=== PATIENT | female | born 1955 ===

== ENCOUNTER → 2016-12-01 | Outpatient (CLI) | payer OTHER | LOC: BMCIMAGING 12:51 | PROVIDERS: ATTEND Emergency Medicine | DX: S92.524A Nondisplaced fracture of middle phalanx of right lesser toe(s), initial encounter for closed fracture (principal) ==

== ENCOUNTER 2017-05-06 12:30 | Inpatient (IN) | payer OTHER ==
[2017-05-06] MEDS ORDERED: ACETAMINOPHEN 325 MG TAB PO PRN (14:24)
[2017-05-06] MEDS ORDERED: ONDANSETRON 4 MG/2 ML VIAL IVP PRN (14:24)
[2017-05-06] MEDS ORDERED: ONDANSETRON DISINTEGRATING 4 MG TAB PO PRN (14:24)
[2017-05-06] MEDS ORDERED: oxyCODONE IR 5 MG TAB PO PRN (14:24)
--- NOTE | 2017-05-06 15:19 | GHP ---
[f rep st] HISTORY AND PHYSICAL DATE OF ADMISSION: 05/06/2017 CHIEF COMPLAINT: Fever and rash. HISTORY OF PRESENT ILLNESS: This is a 62-year-old female with no past medical history who presents w ith 2 days of fevers. This started afternoon. She had to crawl into bed. She measured a f ever to almost 102 degrees Fahrenheit. Later that day, she noticed a rash on her left leg which was painful and erythematous. She thinks that this began because she had socks that were too tight and s lightly abraded her skin around her ankles. She presented to urgent care at [facility] because of this. She tells me over the last 2 months she has had 2 respiratory infections which have also caused her fevers. She is worried that this may all be related. She has no history of an y autoimmune diseases. She has no reason to be immunosuppressed. PAST MEDICAL/SURGICAL HISTORY: Subclinical hyperthyroid. MEDICATIONS: None. ALLERGIES: Ibuprofen and caffeine. SOCIAL HISTORY: She occasionally drinks alcohol. She quit smoking. FAMILY HISTORY: Subclinical hypothyroidism. REVIEW OF SYSTEMS: A 10-point review of systems is conducted and is negative except per HPI. PHYSICAL EXAM: VITAL SIGNS: Blood pressure 116/61, heart rate 83, respiration rate 16, saturating a t 95% on room air, temperature is 36.5. GENERAL: The patient is a pleasant female who is resting co mfortably. No acute distress. HEENT: Normocephalic, atraumatic. CARDIOVASCULAR: Regular rate and rhythm. No murmurs, rubs, or gallops. PULMONARY: Lungs clear to auscultation bilaterally. ABDOME N: Soft, nontender, nondistended. SKIN: Shows a nonconfluent, erythematous, warm rash in her left lower leg. There is some mild edema present. It is painful to the touch. There is 1 very small bul la which was unroofed. They think there may be a second, but it is quite small, 3-4 mm in diameter. : No Acosta. NEUROLOGIC: Exam shows her to be alert and oriented x3. She is moving all extremit ies. PSYCHIATRIC: Shows normal mood and affect. LABS: She has had a basic metabolic panel as well as a CBC, both of which are pending. DATA: I discussed this with Dr. Navarrete. IMPRESSION AND PLAN: This is a 62-year-old female with suspected cellulitis. Suspected cellulitis: This is not typical for a cellulitis, though I think that is likely the diagno sis. Would like to see her white count. Per report, there is some serous exudate from 1 blister. I am unsure if this was sent for culture. She did have blood cultures drawn in the emergency departme nt. Received a dose of Rocephin, and she reports improvement post Rocephin. For now, will follow he r clinically. Place her on Ancef as I do not have relatively low suspicion for Staph at this point. If this improves clinically, she could be discharged on Keflex in a day or 2. If this worsens, will look for other causes including deeper infection as well as potential autoimmune causes. This is a high-risk diagnosis given the extent of the cellulitis. /[id number]/MODL
[2017-05-06] MEDS: ceFAZolin 2 GM/DEXTROSE 100 ML IV SCH (22:50)
[2017-05-07 04:58] LABS: % IMMATURE GRANULYOCYTES 0.4 % (0.0-1.1); ABSOLUTE IMMATURE GRANULOCYTES 0.03 10^3/uL (0.00-0.10); ADD DIFF? NO; ADD MORPH? NO; ADD SCAN? NO; ATYPICAL LYMPHOCYTE FLAG 0 (0-99); FRAGMENT RBC FLAG 0 (0-99); HEMATOCRIT 34.2 % (38.0-47.0); HEMOGLOBIN 11.6 g/dL (12.6-16.3); LEFT SHIFT FLG 10 (0-99); LIPEMIA HEMOLYSIS FLAG 90 (0-99); MEAN CELL HEMOGLOBIN 30.5 pg (27.9-34.1); MEAN CELL HEMOGLOBIN CONCENTR. 33.9 g/dL (32.4-36.7); MEAN PLATELET VOLUME 11.2 fL (8.7-11.7); PLATELET CLUMPS FLAG 20 (0-99); PLATELET COUNT 127 10^3/uL (150-400); RED CELL DISTRIBUTION WIDTH 13.8 % (11.5-15.2)
[2017-05-07 05:14] LABS: ALANINE AMINOTRANSFERASE 26 IU/L (9-52); ALBUMIN 3.1 g/dL (3.5-5.0); ALKALINE PHOSPHATASE 63 IU/L (38-126); ANION GAP 11 mEq/L (8-16); ASPARTATE AMINOTRANSFERASE 16 IU/L (14-46); BILIRUBIN,TOTAL 0.2 mg/dL (0.1-1.4); CALCIUM 8.6 mg/dL (8.5-10.4); CARBON DIOXIDE 27 mEq/l (22-31); CHLORIDE 102 mEq/L (97-110); CREATININE 0.6 mg/dL (0.6-1.0); GLOMERULAR FILTRATION RATE > 60; GLUCOSE 101 mg/dL (70-100); POTASSIUM 3.6 mEq/L (3.5-5.2); SODIUM 140 mEq/L (134-144); TOTAL PROTEIN 5.8 g/dL (6.3-8.2)
[2017-05-07] MEDS: ceFAZolin 2 GM/DEXTROSE 100 ML IV SCH ×3 (05:31→21:38)
--- NOTE | 2017-05-07 11:02 | HOSPPROG ---
Hospitalist Progress Note Assessment/Plan: # LE cellulitis - cont ancef, most likely strep; elevate leg - appreciate ID Subjective: no significant change in erythema today Objective: Vital Signs Temp Pulse Resp BP Pulse Ox 37.1 C 77 16 102/63 97 05/07/17 07:26 05/07/17 10:27 05/07/17 07:26 05/07/17 10:27 05/07/17 07:26 Laboratory Results 05/07/17 04:16 05/07/17 04:16 05/06/17 05/07/17 05/08/17 05:59 05:59 05:59 Intake Total 980 Output Total 800 Balance [address] Cordon - celine ancef high risk given extent of cellulitis - Physical Exam Constitutional: no apparent distress, appears nourished Cardiovascular: regular rate and rhythym, no murmur, rub, or gallop, systolic murmur Respiratory: no respiratory distress, no rales or rhonchi, clear to auscultation Gastrointestinal: normoactive bowel sounds, soft, non-tender abdomen, no palpable masses ICD10 Worksheet Patient Problems: Problems Problem Status Onset Cellulitis Acute
--- NOTE | 2017-05-07 11:12 | GCON ---
[f rep st] CONSULTATION INFECTIOUS DISEASE CONSULT DATE OF CONSULTATION: 05/07/2017 REFERRING PHYSICIAN: Ed Sequeira MD REASON FOR CONSULT: To assist in the management of this 62-year-old female with lower extremity rash and fevers. HISTORY OF PRESENT ILLNESS: The patient is a very pleasant 62-year-old female whose previous medical history is notable for the followin. Impetigo as a child. 2. The patient feels that she is sub clinically hypothyroid because of cold intolerance, but states she has never had lab work to prove this. Regarding her present issues, the patient tells me she was in her usual state of excellent health until this past . She states that she woke up feeling chilled. She went over to cat sit her daughter's cats, who are old cats , and had no contact with her lower extremity whatsoever. She states that her teeth started chattering. She did not have any left lower extremity pain at that time. She went home and went straight to bed with all of her clothes on, including her jacket. She states that she slept all night and the next morning , Monday morning, felt achy and febrile. Her states that her temperature was 101. At that point in time, she noticed some pinkish erythema on her left lower extremity with no pain, per se. She states that she was wearing tight wool socks at that time. She continued to feel badly all day with diminished appetite and body aches. On Monday, she spent most of the day in bed, but on Monday morning, she felt extremely tired and noticed that her leg continued to look worse with worsening erythematous patches. It was not particularly painful per se. She went to [facility] yesterday morning where she was told that she may have cellulitis, but the appearance was atypical. She was given a dose of ceftriaxone and sent here to [facility] for further evaluation and treatment. Of note, the patient had a small blister on her left lower extremity that was aspirated and sent for culture. Because it was an outpatient procedure, no Gram stain was performed. The patient was admitted to the hospitalist service and started on Ancef 2 g IV q.8 hours. Because of the atypical appearance and the fact that she is not better this morning, I am asked by Dr. Ed Sequeira to assist in her management. Speaking with the patient further, I noticed that she had 2 Band-Aids on her left foot, one on her left pinky toe, and one on her left lateral heel. The patient admitted to pulling off a piece of a callus on her left heel on Monday prior to the start of her symptoms. She also feels like she cut her toenail on her pinky toe too short. She states that this area bled. REVIEW OF SYSTEMS: Notable for pain when she bears weight on her left lower extremity, fevers, and shaking chills, but no recent sore throat, night sweats. Her weight has been stable. Mild anorexia. No diarrhea, nausea, vomiting, or other. Aside from what is listed above, 10 systems were reviewed and all were negative. PREVIOUS MEDICAL HISTORY: As outlined above. The patient admits to not having seen a doctor for quite some time. She has not had a screening mammogram or a colonoscopy. She cannot recall her last tetanus booster, but believes it has been in the past 10 years. ALLERGIES: No known drug allergies. MEDICATIONS PRIOR TO ADMISSION: P.r.n. Echinacea. SOCIAL HISTORY: The patient lives in a house in [place] with her supportive . History of tobacco for 3 years, stopped in the s. Less than 1 drink of alcohol per week. No illicit substances. She works doing body work on closed clients. No water exposure other than her shower and bathtub. She does not have any pets. The cats that she sat the other day did not lick her, bite her, or other. She frequently walks around barefoot at home. No recent travel within or outside the [place]. She has an older daughter and son who are healthy. FAMILY HISTORY: Notable for a mother who of complications related to treatment of Hodgkin disease with heart failure. Father from complications related to alcohol. PHYSICAL EXAM: VITAL SIGNS: T current is 37.1, T-max 37.8, heart rate 69, blood pressure 89/53. GENERAL: Thin female, nontoxic, lying in bed in no apparent distress. HEENT: Atraumatic, normocephalic. Pupils equal, round, react to light. Extraocular movements are intact. No conjunctival injection, icterus or petechiae. No sinus process tenderness. No discharge from the nares. Mucous membranes moist. No oral lesions noted. Dentition in fair repair. Trachea is midline. No thyromegaly or palpable thyroid nodules. No cervical or supraclavicular lymphadenopathy. She does have some shotty mildly tender inguinal nodes on the left side. CARDIOVASCULAR: S1, S2. No rubs, gallops, or murmurs. LUNGS: No increased respiratory effort. Clear to auscultation bilaterally with no rales, rhonchi, or wheeze. ABDOMEN: Soft. No organomegaly. Tender to palpation. EXTREMITIES: Her left lower extremity is notable for mild swelling compared to the right, but this is subtle. No squeeze tenderness to her gastrocnemius or pain out of proportion to exam findings. She does have a brick red erythematous patch that is scabbed over distally on the left lower extremity. Again, no active bullae, no hip esthesia. The patient has very faint lymphangitic streaking up her left inner thigh and a very small scabbed area on the left lateral callus, which is cracked. It is not actively draining or expressing pus. It is not particularly painful. The left pinky toenail has been cut short with a small patch of blood, but does not appear actively infected. There is no felon or evidence of paronychia. No evidence of athlete's foot. NEUROLOGIC: She is alert and oriented x3. No focal deficits. LABORATORY DATA: Microbiologic data: Blood cultures x2 are pending. A leg Gram stain and wound culture of her left lower extremity is pending. White blood cell count of 7.7, down from 10.8 on admission. Hematocrit 34, platelet count of 127, BUN and creatinine 11/0.6. Procalcitonin of 0.3. Liver function tests within normal limits. RADIOGRAPHIC DATA: None. IMPRESSION: 62-year-old female with left lower extremity cellulitis and associated lymphangitic streaking. This is more likely secondary to Streptococcus, although it can be seen with Staphylococcus aureus as well. She does not have risk factors for methicillin-resistant Staphylococcus aureus, and does not have any other unusual exposures for other organisms at this time. Suspect portal of entry was the wound on her left lateral heel where she peeled off a piece of callus. Left pinky toe is negative for felon or paronychia. PLAN: 1. Continue Ancef as is at 2 g IV q.8 hours. 2. The patient needs to keep her leg elevated above her heart at all times while in bed, and this was explained to her in detail. 3. I do not feel she needs imaging at this point in time. 4. Suspect thrombocytopenia is from acute illness, but will need this followed. I did not broach HIV testing with her today given exceedingly low risk. 5. Blood cultures are pending as well as Gram stain and culture of the small blister that was present yesterday. Thank you very much for consulting Infectious Diseases. Will continue to follow this patient with you. /[id number]/MODL MTDD
--- NOTE | 2017-05-07 11:43 | PDMN ---
Medical Necessity Medical necessity: C/M review: Patient meets INPT criteria under MCG M-70 Cellulitis; Acute and persistently worsening left lower extremity cellulitis with lymphangitic streaking - mostly likely streptococcus requiring ongoing IV Ancef 2g Q 8 hrs. anticipates > 2 MN LOS for ongoing med nec for eval and TX of above.
--- NOTE | 2017-05-07 14:52 | ASMTCMCOM ---
CM Note CM Note Notes: Pt here w/cellulitis. Pt lives w/. Blood cultures pending so not clear if pt will need long teerm IV ABX's. Anticipate dc independant unless IV ABX's needed. DAVONTE w/f. Date Signed: 05/07/2017 02:52 PM Electronically Signed By:Keerthi Miller RN
[2017-05-08] MEDS: ceFAZolin 2 GM/DEXTROSE 100 ML IV SCH ×3 (05:18→21:36)
--- NOTE | 2017-05-08 14:54 | HOSPPROG ---
Hospitalist Progress Note Assessment/Plan: # LE cellulitis - not significantly improved; likely strep cellulitis, but also consider other organisms as well as non-infective etiologies - cont ancef # anemia - check Fe and B12 - outpatient f/u Subjective: not clear if cellulitis improved today Objective: Vital Signs Temp Pulse Resp BP Pulse Ox 36.8 C 63 14 92/58 L 97 05/08/17 07:30 05/08/17 07:30 05/08/17 07:30 05/08/17 07:30 05/08/17 07:30 Laboratory Results 05/07/17 04:16 05/07/17 04:16 05/07/17 05/08/17 05/09/17 05:59 05:59 05:59 Intake Total 980 865 Output Total 800 600 Balance 180 265 - Physical Exam Constitutional: no apparent distress, appears nourished Eyes: anicteric sclera Ears, Nose, Mouth, Throat: hearing normal Genitourinary: No talamantes in urethra Skin: warm, normal color Musculoskeletal: other (L leg with ongoing erythema and blisters) Neurologic: AAOx3 Psychiatric: interacting appropriately Lymph, Heme, Immunologic: lymphangitic streaking (better than previous) ICD10 Worksheet Patient Problems: Problems Problem Status Onset Cellulitis Acute
--- NOTE | 2017-05-08 16:05 | PCMIDPN ---
Assessment/Plan: Assessment/Plan: * Left lower extremity cellulitis: Appearance most suggestive of beta- hemolytic streptococci. Lymphangitis has decreased significantly with antibiotic therapy. Some early decrease in edema present. Continue antibiotic therapy with cefazolin. Continue lower extremity elevation. Discussed with patient that resolution may be slow. Time spent, 25 min, of which greater than half was spent in education/counseling /coordination of care related to left lower extremity cellulitis. 05/08/17 16:02 Subjective: Patient with less left lower extremity pain. Most prominent when limb is dependent. Has been elevating leg diligently. Objective: Vital Signs Temp Pulse Resp BP Pulse Ox 36.8 C 63 14 92/58 L 97 05/08/17 07:30 05/08/17 07:30 05/08/17 07:30 05/08/17 07:30 05/08/17 07:30 Laboratory Results 05/07/17 04:16 05/07/17 04:16 05/07/17 05/08/17 05/09/17 05:59 05:59 05:59 Intake Total 980 865 Output Total 800 600 Balance 180 265 Cefazolin # 2 Blood cultures x2 no growth Wound culture no growth - Physical Exam General Appearance: alert, no apparent distress EENT: pharynx normal, No conjunctival petechiae Respiratory: lungs clear, No respiratory distress Cardiac/Chest: regular rate, rhythm, No systolic murmur Extremities: inflammation (Left lower extremity with patchy, paddy erythema extending from ankle to knee; warm with mild tenderness palpation; no palpable fluctuance; dorsal lateral ankle with more raised appearance) Abdomen: non-tender, No distended Lymphatic: other (Lymphangitis in left thigh resolving with some residual in popliteal fossa) ICD10 Worksheet Patient Problems: Problems Problem Status Onset Cellulitis Acute
[2017-05-09] MEDS: ceFAZolin 2 GM/DEXTROSE 100 ML IV SCH ×3 (05:15→21:53)
[2017-05-09 06:19] LABS: % IMMATURE GRANULYOCYTES 1.2 % (0.0-1.1); ABSOLUTE IMMATURE GRANULOCYTES 0.07 10^3/uL (0.00-0.10); ADD DIFF? NO; ADD MORPH? NO; ADD SCAN? NO; ATYPICAL LYMPHOCYTE FLAG 0 (0-99); FRAGMENT RBC FLAG 0 (0-99); LEFT SHIFT FLG 10 (0-99); LIPEMIA HEMOLYSIS FLAG 80 (0-99); MEAN CELL HEMOGLOBIN 29.9 pg (27.9-34.1); MEAN CELL HEMOGLOBIN CONCENTR. 33.3 g/dL (32.4-36.7); MEAN CELL VOLUME 89.7 fL (81.5-99.8); MEAN PLATELET VOLUME 10.4 fL (8.7-11.7); PLATELET CLUMPS FLAG 0 (0-99); PLATELET COUNT 186 10^3/uL (150-400); RED BLOOD CELL COUNT 3.68 10^6/uL (4.18-5.33); RED CELL DISTRIBUTION WIDTH 13.5 % (11.5-15.2)
[2017-05-09 06:28] LABS: ALANINE AMINOTRANSFERASE 24 IU/L (9-52); ALBUMIN 2.9 g/dL (3.5-5.0); ALKALINE PHOSPHATASE 58 IU/L (38-126); ANION GAP 12 mEq/L (8-16); ASPARTATE AMINOTRANSFERASE 13 IU/L (14-46); CALCIUM 8.6 mg/dL (8.5-10.4); CARBON DIOXIDE 27 mEq/l (22-31); CHLORIDE 104 mEq/L (97-110); CREATININE 0.6 mg/dL (0.6-1.0); GLOMERULAR FILTRATION RATE > 60; GLUCOSE 93 mg/dL (70-100); POTASSIUM 3.7 mEq/L (3.5-5.2); SODIUM 143 mEq/L (134-144); TOTAL PROTEIN 5.4 g/dL (6.3-8.2)
[2017-05-09 06:37] LABS: % SATURATION 17 % (20-55); TOTAL IRON BINDING CAPACITY 245 ug/dL (260-490)
[2017-05-09 06:44] LABS: BILIRUBIN,TOTAL < 0.1 mg/dL (0.1-1.4)
--- NOTE | 2017-05-09 12:04 | HOSPPROG ---
Hospitalist Progress Note Assessment/Plan: # LE cellulitis - overall improved today; likely strep cellulitis, but also consider other organisms as well as non-infective etiologies - cont ancef # Fe defic anemia - would prefer not to be on Fe supplementation - needs outpatient eval Subjective: feels her leg is improved today Objective: Vital Signs Temp Pulse Resp BP Pulse Ox 36.8 C 69 16 97/55 L 95 05/09/17 07:54 05/09/17 07:54 05/09/17 07:54 05/09/17 07:54 05/09/17 07:54 Laboratory Results 05/09/17 05:10 05/09/17 05:10 05/08/17 05/09/17 05/10/17 05:59 05:59 05:59 Intake Total 865 1160 810 Output Total 600 Balance 265 1160 810 - Time Spent With Patient Time Spent with Patient: greater than 25 minutes Time Spent with Patient: Greater than 25 minutes spent on this patients care, greater than 50% of time spent counseling, educating, and coordinating care regarding the above mentioned plan. - Physical Exam Constitutional: no apparent distress, appears nourished Eyes: anicteric sclera Ears, Nose, Mouth, Throat: hearing normal Cardiovascular: No edema Respiratory: no respiratory distress Gastrointestinal: No distension Genitourinary: No talamantes in urethra Skin: warm Musculoskeletal: full muscle strength, other (L leg with improved erythema) Neurologic: AAOx3 Psychiatric: interacting appropriately ICD10 Worksheet Patient Problems: Problems Problem Status Onset Cellulitis Acute
--- NOTE | 2017-05-09 17:26 | PCMIDPN ---
Assessment/Plan: Assessment/Plan: * Left lower extremity cellulitis: Clinically improved with elevation and antibiotic therapy. Lymphangitis now fully resolved. Intensity of cellulitic component has decreased significantly. Continue cefazolin with probable transition to oral antibiotic such as Augmentin tomorrow for completion of therapy. 05/09/17 17:23 Subjective: Patient with significantly decreased left lower extremity tenderness and intensity of erythema. Pain most prominent with dependency. Objective: Vital Signs Temp Pulse Resp BP Pulse Ox 36.6 C 77 16 109/70 94 05/09/17 15:39 05/09/17 15:39 05/09/17 15:39 05/09/17 15:39 05/09/17 15:39 Laboratory Results 05/09/17 05:10 05/09/17 05:10 05/08/17 05/09/17 05/10/17 05:59 05:59 05:59 Intake Total 865 1160 810 Output Total 600 Balance 265 1160 810 Cefazolin # 3 Blood cultures and wound culture without growth - Physical Exam General Appearance: alert, no apparent distress Extremities: inflammation (Left lower extremity with significant decrease in intensity of erythema with some recession of erythematous patches; some areas more violaceous in hue; mild warmth and residual tenderness) Abdomen: non-tender, No distended Lymphatic: other (Lymphangitis fully resolved in thigh and popliteal fossa) ICD10 Worksheet Patient Problems: Problems Problem Status Onset Cellulitis Acute
[2017-05-09 20:36] VITALS: O2SAT 95
[2017-05-10] MEDS: ceFAZolin 2 GM/DEXTROSE 100 ML IV SCH (05:44)
--- NOTE | 2017-05-10 10:24 | PCMIDPN ---
Assessment/Plan: Assessment/Plan: * Left lower extremity cellulitis: Continued clinical improvement with cefazolin and lower extremity elevation. Think can transition to oral antibiotics at this point. Will give ceftriaxone 2 g IV X 1 prior to discharge for additional IV coverage over next 24 hours. Plan to begin Augmentin 875 bid X 7 days starting tomorrow. Follow-up in my office next week. Side effects of Augmentin reviewed with patient. Reviewed activity level and need for elevation after activity with patient noting no significant restrictions and goal of not being sedentary. Time spent, 25 minutes, including education/counseling/coordination of care related to cellulitis and plan of care. 05/10/17 10:19 Subjective: Feels better with less pain when standing. No rash or diarrhea. Feels like erythema less prominent. Objective: Vital Signs Temp Pulse Resp BP Pulse Ox 36.4 C 68 16 95/59 L 95 05/10/17 08:35 05/10/17 08:35 05/10/17 08:35 05/10/17 08:35 05/10/17 08:35 Laboratory Results 05/09/17 05:10 05/09/17 05:10 05/09/17 05/10/17 05/11/17 05:59 05:59 05:59 Intake Total 1160 1760 Balance 1160 1760 Cefazolin #4 Blood and wound cultures no growth - Physical Exam General Appearance: alert, no apparent distress EENT: No scleral icterus Extremities: inflammation (left lower extremity with decreased edema and intensity of erythematous patches; some more violaceous in different stages; no pain or edema in calf or thigh) Lymphatic: other (lymphangitis resolved in left lower extremity) ICD10 Worksheet Patient Problems: Problems Problem Status Onset Cellulitis Acute
--- NOTE | 2017-05-10 12:36 | GDS ---
[f rep st] DISCHARGE SUMMARY ALL DIAGNOSES: 1. Left lower extremity cellulitis. 2. Iron deficiency anemia. 3. Reported subclinical hyperthyroidism. HOSPITAL COURSE: A 62-year-old female, admitted with left lower extremity cellulitis, seen by Infect ious Disease. Treated with Ancef as an inpatient. She has had significant improvement since her adm ission 4-days ago. We will give one dose of 2 g of Rocephin today and then start her on Augmentin fo r a 7-day course with first dose tomorrow. She will follow up with Dr. Spivey with Infectious Disease next week. She has been given a referral to see Dr. Good to establish primary care. She is concer theo about her subclinical hyperthyroidism and would like some followup on that. BILLING: I spent less than 30 minutes on the day of discharge coordinating care. /[id number]/MODL
--- NOTE | 2017-05-10 14:03 | ASDISCHSUM ---
Discharge Information Plan Status: Medically Cleared to Leave: Discharge Date: CM D/C Disposition: ADT D/C Disposition:Home, Routine, Self-Care Projected Discharge Date: Transportation at D/C: Discharge Delay Reason: Follow-Up Date: Discharge Slot: Final Diagnosis: Placement Information Patient Contact Information Contact Name:KIM Relationship: Address:[address] [place] [address] City:[facility] Phone: State/Zip Code:[place] [address] Email: Financial Information Financial Class:HMO and PPO Plans Primary Plan Desc:[facility] Primary Plan Number:[id number] Secondary Plan Desc: Secondary Plan Number: Assessment Information [facility] CM Progress Note CM Note CM Note Notes: Pt here w/cellulitis. Pt lives w/. Blood cultures pending so not clear if pt will need long teerm IV ABX's. Anticipate dc independant unless IV ABX's needed. CM w/f. Date Signed: 05/07/2017 02:52 PM Electronically Signed By:Keerthi Miller RN [facility] CM Progress Note CM Note CM Note Notes: Pt to DC today on oral ABX. Pt has no other DC needs. Date Signed: 05/10/2017 02:02 PM Electronically Signed By:Lillie Toney LCSW Intervention Information
[2017-05-10 14:11] VITALS: BP 104/57; PULSE 79; RESP 18; TEMP 98
== END 2017-05-10 14:31 | disposition home or self-care (01) | DRG 603 ==
LOC: F3N 13:15 → OBSVTOIN 05-07 11:03 → F1N 05-09 15:13
PROVIDERS: ADMIT Internal Medicine; ATTEND Student in an Organized Health Care Education/Training Program
DX: L03.116 Cellulitis of left lower limb (principal); E02 Subclinical iodine-deficiency hypothyroidism; D50.9 Iron deficiency anemia, unspecified
CPT/HCPCS: 82607-90; G0378; J0690; J0696